=== PATIENT | male | born 1990 ===

== ENCOUNTER 2017-06-30 08:54 | Emergency (ER) | payer OTHER ==
--- NOTE | 2017-06-30 09:41 | C.PDOC ---
History Of Present Illness ASTHMA EXAC, FEVER, MYALGIA X 3 DAYS. PS NO LONGER HAS ASTHMA MEDS. SUBJ FEVER. NO NVD EXAM MILD DIST NONTOXIC HEENT NEG LUNGS DC BS B/L W EXP WHEEZE NO RETRACTION, TACHYPNEA CV RRR SINUS TACH REMAINDER NEG Time Seen by Provider: 06/30/17 09:40 Chief Complaint (Nursing): Flu-like Symptoms History Per: Patient History/Exam Limitations: no limitations Onset/Duration Of Symptoms: Days (3) Current Symptoms Are (Timing): Still Present Past Medical History Reviewed: Historical Data, Nursing Documentation, Vital Signs Vital Signs: Last Vital Signs Temp 101.2 F H 06/30/17 09:04 Pulse 116 H 06/30/17 09:04 Resp 20 06/30/17 09:04 BP 102/60 06/30/17 09:04 Pulse Ox 96 06/30/17 10:11 Family History: States: No Known Family Hx - Social History Hx Alcohol Use: No Hx Substance Use: No - Immunization History Hx Tetanus Toxoid Vaccination: No Hx Influenza Vaccination: No Hx Pneumococcal Vaccination: No Review Of Systems Except As Marked, All Systems Reviewed And Found Negative. Constitutional: Positive for: Fever (subjective), Other ((+) asthma exacerbation , myalgia) Gastrointestinal: Negative for: Nausea, Vomiting, Abdominal Pain, Diarrhea Physical Exam - Physical Exam Appears: Non-toxic, In Acute Distress (mild) Skin: Warm, Dry, No Rash Eye(s): bilateral: Normal Inspection, PERRL, EOMI Oral Mucosa: Moist Throat: No Normal, No Erythema, No Exudate Neck: Normal, Normal ROM, Supple Cardiovascular: Rhythm Regular, Other ((+) sinus tach) Respiratory: Decreased Breath Sounds (bilateral), Wheezing (expirtory), Other (( -) retractions, tachypnea) Extremity: Normal ROM, No Swelling Neurological/Psych: Oriented x3, Normal Speech ED Course And Treatment O2 Sat by Pulse Oximetry: 96 Pulse Ox Interpretation: Normal - Radiology CXR: Interpreted by Me, Viewed By Me CXR Interpretation: Yes: No Acute Disease Medical Decision Making Medical Decision Making: PLAN: * CXR * Albuterol IH * Motrin PO * Prednisone PO Disposition Counseled Patient/Family Regarding: Studies Performed, Diagnosis, Need For Followup, Rx Given - Disposition Referrals: Pending Sale To [facility] [Outside] [facility] [Outside] Disposition: HOME/ ROUTINE Disposition Time: 09:58 Condition: IMPROVED Prescriptions: Albuterol HFA [Ventolin HFA 90 mcg/actuation (8 g)] 1 puff IH Q4 #1 inhaler Ibuprofen [Motrin] 600 mg PO Q6 #30 tab Oseltamivir [Tamiflu] 75 mg PO BID #10 cap predniSONE [Prednisone] 60 mg PO DAILY #12 tab Instructions: Asthma (ED), Influenza (ED) Forms: [facility] (Salvadorean), Work Excuse Print Language: AFGHAN - Clinical Impression Clinical Impression: Influenza-like illness, Asthma exacerbation - Scribe Statement The provider has reviewed the documentation as recorded by the Karissaibfaviola Weems Provider Attestation: All medical record entries made by the Karissaibfaviola were at my direction and personally dictated by me. I have reviewed the chart and agree that the record accurately reflects my personal performance of the history, physical exam, medical decision making, and the department course for this patient. I have also personally directed, reviewed, and agree with the discharge instructions and disposition.
[2017-06-30] MEDS ORDERED: Albuterol-Ipratrop 3 mg / 0.5 (3 ml) UD ONE (10:02)
[2017-06-30] MEDS: Albuterol-Ipratrop 3 mg / 0.5 (3 ml) UD IH SCH ×2 (10:03→10:12)
[2017-06-30 10:43] VITALS: BP 125/74; PULSE 98; RESP 16; TEMP 99.9; O2SAT 97
--- NOTE | 2017-06-30 12:14 | RAD ---
HISTORY: fever cough COMPARISON: No prior. TECHNIQUE: Chest PA and lateral FINDINGS: LUNGS: No active pulmonary disease. PLEURA: No significant pleural effusion identified. No pneumothorax apparent. CARDIOVASCULAR: Normal. OSSEOUS STRUCTURES: No significant abnormalities. VISUALIZED UPPER ABDOMEN: Normal. OTHER FINDINGS: None. IMPRESSION: NO RADIOGRAPHIC EVIDENCE OF PNEUMONIA.
== END 2017-06-30 10:42 | disposition home or self-care (01) ==
LOC: C.ER 08:54
DX: J45.901 Unspecified asthma with (acute) exacerbation (principal); J11.1 Influenza due to unidentified influenza virus with other respiratory manifestations